=== PATIENT | male | born 1960 | race Native Hawaiian/Other Pacific Islander ===

== ENCOUNTER 2017-12-03 12:23 | Outpatient (CLI) | payer OTHER | END 2017-12-03 12:24 | disposition home or self-care (01) | LOC: LAB 12:23 → EDBD 12:23 → LAB 12:24 | PROVIDERS: ATTEND Internal Medicine | DX: Z00.00 Encounter for general adult medical examination without abnormal findings (principal); I10 Essential (primary) hypertension | CPT/HCPCS: 36415; 83036 ==

== ENCOUNTER 2018-09-05 08:22 | Outpatient (CLI) | payer OTHER ==
[2018-09-05 10:34] LABS: Chol/HDL Ratio 3.38 %
[2018-09-10 06:19] LABS: Vitamin D, 25-OH, D2 SEE SCANNED RESULTS
== END 2018-09-05 08:23 | disposition home or self-care (01) ==
LOC: LAB 08:22
PROVIDERS: ATTEND Internal Medicine
DX: E11.9 Type 2 diabetes mellitus without complications (principal); I10 Essential (primary) hypertension; E66.09 Other obesity due to excess calories; R22.2 Localized swelling, mass and lump, trunk
CPT/HCPCS: 36415; 80061; 82306; 83036

== ENCOUNTER 2018-11-18 11:32 | Emergency (ER) | payer OTHER ==
--- NOTE | 2018-11-18 11:43 | Event Note ---
ED Screening Note Date of service: 11/18/18 Time: 11:38 ED Screening Note: 58 y/o male referred to ER for elevated blood sugar of 335. PT c/o JAMES on right side of head for 3 days. PMH DM, HTN. BS in triage 289. Takes both insulin and oral . Tooke this morning. This initial assessment/diagnostic orders/clinical plan/treatment(s) is/are subject to change based on patients health status, clinical progression and re- assessment by fellow clinical providers in the ED. Further treatment and workup at subsequent clinical providers discretion. Patient/guardian urged not to elope from the ED as their condition may be serious if not clinically assessed and managed. Initial orders include:
[2018-11-18 12:06] LABS: Basophils % (Auto) 0.2 % (0.0-1.8); Eosinophils # (Auto) 0.1 K/mm3 (0.0-0.4); Eosinophils % (Auto) 0.8 % (0.0-4.3); Hematocrit 41.2 % (35.5-45.6); Hemoglobin 13.7 gm/dl (11.8-15.2); Lymphocytes # (Auto) 3.3 K/mm3 (1.2-5.4); Lymphocytes % (Auto) 25.7 % (13.4-35.0); Mean Corpuscular HGB Conc 33 % (32-34); Mean Corpuscular Volume 78 fl (84-94); Monocytes # (Auto) 0.8 K/mm3 (0.0-0.8); Monocytes % (Auto) 6.1 % (0.0-7.3); Platelet Count 271 K/mm3 (140-440); Red Cell Distribution Width 15.7 % (13.2-15.2)
[2018-11-18 12:08] LABS: Bilirubin,Urine NEG (Negative); Blood,Urine SM (Negative); Color,Urine Yellow (Yellow); Protein,Urine <15 mg/dL mg/dL (Negative); Urobilinogen,Urine < 2.0 mg/dL (<2.0)
[2018-11-18 12:14] LABS: WBC,Urine < 1.0 /HPF (0.0-6.0)
[2018-11-18] MEDS ORDERED: NACL 0.9% 1000 ML 1,000 ML IV ONE (12:28)
[2018-11-18] MEDS ORDERED: ZOFRAN IV ONE (12:28)
[2018-11-18] MEDS ORDERED: NORMODYNE IV ONE ×2 (12:28→12:53)
[2018-11-18] MEDS ORDERED: MORPHINE IV ONE ×2 (12:28→16:30)
[2018-11-18] MEDS ORDERED: HumuLIN R IV ONE (12:28)
[2018-11-18 12:43] LABS: Alanine Aminotransferase 14 units/L (7-56); Albumin 4.1 g/dL (3.9-5); BUN/Creatinine Ratio 26; Blood Urea Nitrogen 21 mg/dL (9-20); Calcium 9.3 mg/dL (8.4-10.2); Hemolysis Index 8
[2018-11-18] MEDS ORDERED: NORCO 5/325 PO ONE (15:43)
--- NOTE | 2018-11-18 16:37 | Emergency Department Report ---
<JOB MCMANUS - Last Filed: 11/18/18 16:53> ED Headache HPI - General Chief Complaint: High BP Stated Complaint: HEADACHE/BLURR VISION SUGAR HIGH Time Seen by Provider: 11/18/18 12:27 - History of Present Illness Initial Comments: Patient is a 58-year-old male who is presenting with a right-sided headache that is been present constantly for the past 3 days. Patient saw his primary care physician today was sent to the emergency department for further evaluation. Patient states that 3 days ago he was at work and started gradually having a right-sided headache. Patient states the headache is mostly in the frontal region on the right side of his head. Patient states there is some tenderness with palpation. He denies any fevers chills sore throat cough cold congestion at this time. Patient states he's been compliant with his antihypertensive and diabetes medications Quality: severe Recent Head Trauma: no recent headache/trauma Associated Symptoms: vision changes (patient states he has bilateral blurry v ision). denies: confusion, fatigue, facial pain, fever/chills, loss of consciousness, nausea/vomiting, nasal congestion, nasal drainage, seizures, sinus infection, stiff neck Allergies/Adverse Reactions: Allergies No Known Allergies Allergy (Verified 11/18/18 11:32) Home Medications: Ambulatory Orders EPINEPHrine (NF) [Epipen (Nf)] 0.3 mg IM ONCE PRN #1 syringekit 04/19/16 Famotidine [Pepcid] 20 mg PO BID #10 tablet 04/19/16 diphenhydrAMINE [Benadryl CAP] 50 mg PO QHS #5 capsule 04/19/16 diphenhydrAMINE [Benadryl CAP] 50 mg PO QHS #5 capsule 04/19/16 predniSONE [Deltasone] 40 mg PO QDAY 5 Days tab 04/19/16 Butalb/Acetamin/Caff 50-325-40 [Fioricet 50-325-40] 1 tab PO Q6HR PRN #12 tab 11/18/18 Ketorolac [Toradol] 10 mg PO Q6H PRN #12 tablet 11/18/18 ED Review of Systems Comment: All other systems reviewed and negative ED Past Medical Hx - Past Medical History Hx Hypertension: Yes Hx Diabetes: Yes - Social History Smoking Status: Former Smoker Substance Use Type: None - Medications Home Medications: Home Medications Medication Instructions Recorded Confirmed Last Taken Type EPINEPHrine (NF) [Epipen (Nf)] 0.3 mg IM ONCE PRN #1 syringekit 04/19/16 Unknown Rx Famotidine [Pepcid] 20 mg PO BID #10 tablet 04/19/16 Unknown Rx diphenhydrAMINE [Benadryl CAP] 50 mg PO QHS #5 capsule 04/19/16 Unknown Rx diphenhydrAMINE [Benadryl CAP] 50 mg PO QHS #5 capsule 04/19/16 Unknown Rx predniSONE [Deltasone] 40 mg PO QDAY 5 Days tab 04/19/16 Unknown Rx Butalb/Acetamin/Caff 50-325-40 1 tab PO Q6HR PRN #12 tab 11/18/18 Unknown Rx [Fioricet 50-325-40] Ketorolac [Toradol] 10 mg PO Q6H PRN #12 tablet 11/18/18 Unknown Rx ED Physical Exam - General Limitations: No Limitations General appearance: alert, in no apparent distress - Head Head exam: Present: atraumatic, normocephalic - Eye Eye exam: Present: normal appearance - ENT ENT exam: Present: mucous membranes moist - Neck Neck exam: Present: normal inspection, full ROM - Respiratory Respiratory exam: Present: normal lung sounds bilaterally. Absent: respiratory distress, wheezes, rales, rhonchi - Cardiovascular Cardiovascular Exam: Present: normal rhythm, tachycardia (patient is mildly tachycardic likely secondary to pain). Absent: systolic murmur, diastolic murmur, rubs, gallop - GI/Abdominal GI/Abdominal exam: Present: soft, normal bowel sounds. Absent: distended, tenderness, guarding, rebound - Rectal Rectal exam: Present: deferred - Extremities Exam Extremities exam: Present: normal inspection - Back Exam Back exam: Present: normal inspection - Neurological Exam Neurological exam: Present: alert, oriented X3 - Psychiatric Psychiatric exam: Present: normal affect, normal mood - Skin Skin exam: Present: warm, dry, intact, normal color. Absent: rash ED Course - Reevaluation(s) Reevaluation #1: 11/18/18 16:39 Patient's blood pressure did decrease after the first dose of morphine and labetalol. Patient stated he had a brief improvement of his headache however it has returned. Unfortunately there was significant delay with obtaining the report for his CT of the head. Patient given additional dose of morphine at this time while we await CT results Reevaluation #2: 11/18/18 16:53 CT without contrast of the patient's head showed no acute process. The decision was made to perform a CTA of the head to rule out an aneurysmal process. CTA coupled with a CT of the head given the fact that the headache has been greater than 6 hours should effectively rule out a subarachnoid hemorrhage. A decision was made to not perform a lumbar puncture secondary to patient's body habitus and the fact that the patient's headache is only one-sided. ED Medical Decision Making - Lab Data Result diagrams: 11/18/18 11:52 11/18/18 11:52 Lab Results 11/18/18 11/18/18 11/18/18 Range/Units 11:46 11:47 11:52 WBC 12.9 H (4.5-11.0) K/mm3 RBC 5.30 H (3.65-5.03) M/mm3 Hgb 13.7 (11.8-15.2) gm/dl Hct 41.2 (35.5-45.6) % MCV 78 L (84-94) fl MCH 26 L (28-32) pg MCHC 33 (32-34) % RDW 15.7 H (13.2-15.2) % Plt Count 271 (140-440) K/mm3 Lymph % (Auto) 25.7 (13.4-35.0) % [place] % (Auto) 6.1 (0.0-7.3) % Eos % (Auto) 0.8 (0.0-4.3) % Baso % (Auto) 0.2 (0.0-1.8) % Lymph # 3.3 (1.2-5.4) K/mm3 [place] # 0.8 (0.0-0.8) K/mm3 Eos # 0.1 (0.0-0.4) K/mm3 Baso # 0.0 (0.0-0.1) K/mm3 Seg Neutrophils % 67.2 (40.0-70.0) % Seg Neutrophils # 8.7 H (1.8-7.7) K/mm3 Sodium (137-145) mmol/L Potassium (3.6-5.0) mmol/L Chloride (98-107) mmol/L Carbon Dioxide (22-30) mmol/L Anion Gap mmol/L BUN (9-20) mg/dL Creatinine (0.8-1.5) mg/dL Estimated GFR ml/min BUN/Creatinine Ratio % Glucose (75-100) mg/dL POC Glucose 289 H (70-105) Calcium (8.4-10.2) mg/dL Total Bilirubin (0.1-1.2) mg/dL AST (5-40) units/L ALT (7-56) units/L Alkaline Phosphatase (35-129) units/L Total Protein (6.3-8.2) g/dL Albumin (3.9-5) g/dL Albumin/Globulin Ratio % Urine Color Yellow (Yellow) Urine Turbidity Clear (Clear) Urine pH 5.0 (5.0-7.0) Ur Specific [place] 1.024 (1.003-1.030) Urine Protein <15 mg/dl (Negative) mg/dL Urine Glucose (UA) >=500 (Negative) mg/dL Urine Ketones Neg (Negative) mg/dL Urine Blood Sm (Negative) Urine Nitrite Neg (Negative) Urine Bilirubin Neg (Negative) Urine Urobilinogen < 2.0 (<2.0) mg/dL Ur Leukocyte Esterase Neg (Negative) Urine WBC (Auto) < 1.0 (0.0-6.0) /HPF Urine RBC (Auto) 2.0 (0.0-6.0) /HPF U Epithel Cells (Auto) < 1.0 (0-13.0) /HPF 11/18/18 11/18/18 Range/Units 11:52 12:53 WBC (4.5-11.0) K/mm3 RBC (3.65-5.03) M/mm3 Hgb (11.8-15.2) gm/dl Hct (35.5-45.6) % MCV (84-94) fl MCH (28-32) pg MCHC (32-34) % RDW (13.2-15.2) % Plt Count (140-440) K/mm3 Lymph % (Auto) (13.4-35.0) % [place] % (Auto) (0.0-7.3) % Eos % (Auto) (0.0-4.3) % Baso % (Auto) (0.0-1.8) % Lymph # (1.2-5.4) K/mm3 [place] # (0.0-0.8) K/mm3 Eos # (0.0-0.4) K/mm3 Baso # (0.0-0.1) K/mm3 Seg Neutrophils % (40.0-70.0) % Seg Neutrophils # (1.8-7.7) K/mm3 Sodium 135 L (137-145) mmol/L Potassium 4.7 (3.6-5.0) mmol/L Chloride 98.0 (98-107) mmol/L Carbon Dioxide 23 (22-30) mmol/L Anion Gap 19 mmol/L BUN 21 H (9-20) mg/dL Creatinine 0.8 (0.8-1.5) mg/dL Estimated GFR > 60 ml/min BUN/Creatinine Ratio 26 % Glucose 336 H (75-100) mg/dL POC Glucose 279 H (70-105) Calcium 9.3 (8.4-10.2) mg/dL Total Bilirubin 0.30 (0.1-1.2) mg/dL AST 10 (5-40) units/L ALT 14 (7-56) units/L Alkaline Phosphatase 136 H (35-129) units/L Total Protein 7.8 (6.3-8.2) g/dL Albumin 4.1 (3.9-5) g/dL Albumin/Globulin Ratio 1.1 % Urine Color (Yellow) Urine Turbidity (Clear) Urine pH (5.0-7.0) Ur Specific [place] (1.003-1.030) Urine Protein (Negative) mg/dL Urine Glucose (UA) (Negative) mg/dL Urine Ketones (Negative) mg/dL Urine Blood (Negative) Urine Nitrite (Negative) Urine Bilirubin (Negative) Urine Urobilinogen (<2.0) mg/dL Ur Leukocyte Esterase (Negative) Urine WBC (Auto) (0.0-6.0) /HPF Urine RBC (Auto) (0.0-6.0) /HPF U Epithel Cells (Auto) (0-13.0) /HPF Vital Signs 11/18/18 11/18/18 11/18/18 11:38 12:40 12:46 Temperature 97.8 F Pulse Rate 88 86 87 Respiratory 18 18 18 Rate Blood Pressure 166/93 160/86 Blood Pressure 160/82 [Left] Blood Pressure [Right] O2 Sat by Pulse 96 100 97 Oximetry 11/18/18 11/18/18 11/18/18 12:52 13:00 13:05 Temperature Pulse Rate 86 82 Respiratory 17 Rate Blood Pressure 160/80 136/77 160/80 Blood Pressure [Left] Blood Pressure [Right] O2 Sat by Pulse 96 Oximetry 11/18/18 11/18/18 11/18/18 13:15 13:20 13:30 Temperature Pulse Rate 79 79 Respiratory 16 18 18 Rate Blood Pressure 130/69 138/74 Blood Pressure [Left] Blood Pressure [Right] O2 Sat by Pulse 96 97 96 Oximetry 11/18/18 11/18/18 11/18/18 15:29 15:31 15:32 Temperature Pulse Rate 82 80 83 Respiratory 18 18 16 Rate Blood Pressure 139/79 150/82 Blood Pressure [Left] Blood Pressure 150/82 [Right] O2 Sat by Pulse 97 97 97 Oximetry 11/18/18 15:56 Temperature Pulse Rate Respiratory 18 Rate Blood Pressure Blood Pressure [Left] Blood Pressure [Right] O2 Sat by Pulse Oximetry - Radiology Data [facility] [address] [place] [address] Cat Scan Report Signed Patient: PATRICIA MURRAY MR#: [id number] : 1960 Acct:[id number] Age/Sex: 58 / M ADM Date: 11/18/18 Loc: ED Attending Dr: Ordering Physician: JOB MCMANUS MD Date of Service: 11/18/18 Procedure(s): CT head/brain wo con Accession Number(s): [id number] cc: JOB MCMANUS MD PROCEDURE: CT HEAD/BRAIN WO CON TECHNIQUE: Computerized tomography of the head was performed without contrast material. CT DOSE LENGTH PRODUCT: 1035.5 mGycm HISTORY: right sided JAMES, elev BP COMPARISONS: None . FINDINGS: Brain: There is no evidence of intracranial hemorrhage. No parenchymal hemorrhage is seen. No mass lesions or mass effect is identified. No abnormal extra-axial fluid collections or masses are seen. There is some decreased density seen in the periventricular white matter without mass effect. This is fairly symmetric and does not exhibit any mass effect consistent with gliosis probably on the basis of microvascular disease or white matter changes of aging. Ventricles: The ventricles, sulcal pattern and fissures are prominent consistent with atrophy. Bone Windows: No evidence of fracture. Paranasal sinuses: Visualized portions are clear.. Mastoid air cells: Clear. IMPRESSION: There is evidence of mild atrophy and mild to moderate gliosis. No evidence of intracranial hemorrhage or mass lesion. No other abnormalities are identified. This document is electronically signed by Diego Montalvo MD., November 18 2018 04:47:34 PM ET Transcribed By: KINGSLEY Dictated By: DIEGO MONTALVO MD Electronically Authenticated By: DIEGO MONTALVO MD Signed Date/Time: 11/18/18 1649 DD/ 1229 TD/TT: 11/18/18 1619 ED Disposition Clinical Impression: Acute headache, Hypertensive urgency, Acute hyperglycemia Disposition: DC-01 TO HOME OR SELFCARE Condition: Fair Instructions: Acute Headache (ED), Hypertension (ED) Additional Instructions: Take the medication as prescribed. Follow up with your doctor or the clinic/doctor provided. Return if symptoms worsen as indicated by your discharge instructions Prescriptions: Butalb/Acetamin/Caff 50-325-40 [Fioricet 50-325-40] 1 tab PO Q6HR PRN #12 tab PRN Reason: Headache Ketorolac [Toradol] 10 mg PO Q6H PRN #12 tablet PRN Reason: Pain Referrals: LINDSAY GO MD [Referring] - 3-5 Days VIOLA MILLER MD [Staff Physician] - 3-5 Days (Neurologist) <LOS ESPINOZA - Last Filed: 11/18/18 21:06> ED Review of Systems ROS: Stated complaint: HEADACHE/BLURR VISION SUGAR HIGH Other details as noted in HPI ED Course Vital Signs 11/18/18 11/18/18 11/18/18 11:38 12:40 12:46 Temperature 97.8 F Pulse Rate 88 86 87 Respiratory 18 18 18 Rate Blood Pressure 166/93 160/86 Blood Pressure 160/82 [Left] Blood Pressure [Right] O2 Sat by Pulse 96 100 97 Oximetry 11/18/18 11/18/18 11/18/18 12:52 13:00 13:05 Temperature Pulse Rate 86 82 Respiratory 17 Rate Blood Pressure 160/80 136/77 160/80 Blood Pressure [Left] Blood Pressure [Right] O2 Sat by Pulse 96 Oximetry 11/18/18 11/18/18 11/18/18 13:15 13:20 13:30 Temperature Pulse Rate 79 79 Respiratory 16 18 18 Rate Blood Pressure 130/69 138/74 Blood Pressure [Left] Blood Pressure [Right] O2 Sat by Pulse 96 97 96 Oximetry 11/18/18 11/18/18 11/18/18 15:29 15:31 15:32 Temperature Pulse Rate 82 80 83 Respiratory 18 18 16 Rate Blood Pressure 139/79 150/82 Blood Pressure [Left] Blood Pressure 150/82 [Right] O2 Sat by Pulse 97 97 97 Oximetry 11/18/18 11/18/18 11/18/18 15:45 15:56 16:00 Temperature Pulse Rate 81 78 Respiratory 13 18 12 Rate Blood Pressure 140/83 136/79 Blood Pressure [Left] Blood Pressure [Right] O2 Sat by Pulse 98 100 Oximetry 11/18/18 11/18/18 11/18/18 16:15 16:31 16:45 Temperature Pulse Rate 76 79 79 Respiratory 17 12 17 Rate Blood Pressure 146/85 147/81 130/96 Blood Pressure [Left] Blood Pressure [Right] O2 Sat by Pulse 96 97 98 Oximetry 11/18/18 11/18/18 11/18/18 17:00 17:15 17:30 Temperature Pulse Rate 84 84 79 Respiratory 16 14 16 Rate Blood Pressure 130/96 153/75 133/78 Blood Pressure [Left] Blood Pressure [Right] O2 Sat by Pulse 97 96 96 Oximetry 11/18/18 11/18/18 11/18/18 17:45 18:00 18:15 Temperature Pulse Rate 75 73 75 Respiratory 14 11 L 16 Rate Blood Pressure 135/84 126/68 135/76 Blood Pressure [Left] Blood Pressure [Right] O2 Sat by Pulse 97 96 95 Oximetry 11/18/18 11/18/18 11/18/18 18:30 18:45 19:32 Temperature Pulse Rate 74 71 85 Respiratory 14 14 Rate Blood Pressure 143/78 141/76 141/76 Blood Pressure [Left] Blood Pressure [Right] O2 Sat by Pulse 97 97 Oximetry 11/18/18 11/18/18 11/18/18 19:34 19:45 20:00 Temperature Pulse Rate 83 78 79 Respiratory 16 15 17 Rate Blood Pressure 134/86 129/77 Blood Pressure [Left] Blood Pressure 169/77 [Right] O2 Sat by Pulse 100 98 97 Oximetry 11/18/18 11/18/18 11/18/18 20:15 20:30 20:45 Temperature Pulse Rate 80 75 75 Respiratory 15 16 15 Rate Blood Pressure 137/89 145/77 136/83 Blood Pressure [Left] Blood Pressure [Right] O2 Sat by Pulse 97 98 96 Oximetry ED Medical Decision Making - Lab Data Result diagrams: 11/18/18 11:52 11/18/18 11:52 - Radiology Data Radiology results: report reviewed PROCEDURE: CT angiogram head with contrast. TECHNIQUE: Computerized tomographic angiography of the head was performed after the IV injection of iodinated nonionic contrast including image processing. The image data was postprocessed using 2-dimensional multiplanar reformatted (MPR) and 3-dimensional (MIP and/or volume rendered) techniques. CT DOSE LENGTH PRODUCT: 1195.4 mGycm HISTORY: hypertensive headache COMPARISONS: None. FINDINGS: Both distal internal carotid arteries are widely patent. Both anterior cerebral arteries are patent. The anterior communicating artery is patent. Both middle cerebral arter ies are patent. Both posterior communicating arteries are patent. Both distal vertebral arteries are patent. Both posterior inferior cerebellar arteries are patent. The basilar artery is patent. Both anterior inferior cerebellar arteries are patent. Both superior cerebellar and both posterior cerebral arteries are patent. There are no signs of aneurysm disease. There is no evidence of a vasculitis. Incidental note is made of a lobulated mass with fat attenuation located posterior to the right parotid gland. This is only partially imaged. It measures approximately 2.9 cm x 1.8 cm in cross- section. It may represent a lipoma. IMPRESSION: Normal CT angiogram of the head. Possible lipoma posterior to the right parotid gland. - Medical Decision Making Patient had relief in pain with meds provided by Dr. Mcmanus. He complained of some mild visual disturbances therefore visual acuity obtained. Right eye 20/40, left eye 20/40, and bilateral IVs and 20/40. CT angiogram negative for aneurysm. Patient will be discharged on Toradol and Rocephin as recommended by Dr. Mcmanus. Critical care attestation.: If time is entered above; I have spent that time in minutes in the direct care of this critically ill patient, excluding procedure time. ED Disposition Is pt being admited?: No Does the pt Need Aspirin: No Time of Disposition: 21:06
--- NOTE | 2018-11-18 16:49 | Cat Scan Report ---
PROCEDURE: CT HEAD/BRAIN WO CON TECHNIQUE: Computerized tomography of the head was performed without contrast material. CT DOSE LENGTH PRODUCT: 1035.5 mGycm HISTORY: right sided JAMES, elev BP COMPARISONS: None . FINDINGS: Brain: There is no evidence of intracranial hemorrhage. No parenchymal hemorrhage is seen. No mass lesions or mass effect is identified. No abnormal extra-axial fluid collections or masses are seen. There is some decreased density seen in the periventricular white matter without mass effect. This i s fairly symmetric and does not exhibit any mass effect consistent with gliosis probably on the basis of microvascular disease or white matter changes of aging. Ventricles: The ventricles, sulcal pattern and fissures are prominent consistent with atrophy. Bone Windows: No evidence of fracture. Paranasal sinuses: Visualized portions are clear.. Mastoid air cells: Clear. IMPRESSION: There is evidence of mild atrophy and mild to moderate gliosis. No evidence of intracranial hemorrhag e or mass lesion. No other abnormalities are identified. This document is electronically signed by Diego Martínez MD., November 18 2018 04:47:34 PM ET
--- NOTE | 2018-11-18 20:14 | Cat Scan Report ---
PROCEDURE: CT angiogram head with contrast. TECHNIQUE: Computerized tomographic angiography of the head was performed after the IV injection of iodinated nonionic contrast including image processing. The image data was postprocessed using 2-dim ensional multiplanar reformatted (MPR) and 3-dimensional (MIP and/or volume rendered) techniques. CT DOSE LENGTH PRODUCT: 1195.4 mGycm HISTORY: hypertensive headache COMPARISONS: None. FINDINGS: Both distal internal carotid arteries are widely patent. Both anterior cerebral arteries are patent. The anterior communicating artery is patent. Both middle cerebral arteries are patent. Both posterior communicating arteries are patent. Both distal vertebral arteries are patent. Both posterior inferio r cerebellar arteries are patent. The basilar artery is patent. Both anterior inferior cerebellar art eries are patent. Both superior cerebellar and both posterior cerebral arteries are patent. There are no signs of aneurysm disease. There is no evidence of a vasculitis. Incidental note is made of a lob ulated mass with fat attenuation located posterior to the right parotid gland. This is only partially imaged. It measures approximately 2.9 cm x 1.8 cm in cross-section. It may represent a lipoma. IMPRESSION: Normal CT angiogram of the head. Possible lipoma posterior to the right parotid gland. This document is electronically signed by Blayne Dutton MD., November 18 2018 08:12:14 PM ET
[2018-11-18 21:13] VITALS: BP 141/78
== END 2018-11-18 21:25 | disposition home or self-care (01) ==
LOC: ED 11:32
DX: I16.0 Hypertensive urgency (principal); E11.65 Type 2 diabetes mellitus with hyperglycemia; Z87.891 Personal history of nicotine dependence; Z79.899 Other long term (current) drug therapy
CPT/HCPCS: 36415; 70450; 70496; 80053; 81001; 82962; 85025; 96361; 96374; 96375; 96376; 99284; J2270; J2405; J7030; Q9967; J1815

== ENCOUNTER 2019-01-23 08:12 | Outpatient (CLI) | payer OTHER | END 2019-01-23 08:13 | disposition home or self-care (01) | LOC: LAB 08:12 | PROVIDERS: ATTEND Internal Medicine | DX: E11.9 Type 2 diabetes mellitus without complications (principal); I10 Essential (primary) hypertension | CPT/HCPCS: 36415; 83036 ==